=== PATIENT | female | born 1990 | race Caucasian/White ===

== ENCOUNTER 2019-01-22 19:15 | Inpatient (IN) | payer OTHER ==
[2019-01-22] MEDS ORDERED: Acetaminophen 500 MG TAB PO PRN (20:41)
[2019-01-22] MEDS ORDERED: Misoprostol 200 MCG TAB PR PRN (20:41)
[2019-01-22] MEDS ORDERED: Carboprost 250 MCG/ML AMP IM PRN (20:41)
[2019-01-22] MEDS ORDERED: Ondansetron PF 4 MG/2 ML Vial IVP PRN (20:41)
[2019-01-22] MEDS ORDERED: Butorphanol Tartrate 1 MG/ML VIAL SLOW IVP PRN (20:41)
[2019-01-22] MEDS ORDERED: hydrALAZINE 20 MG/ML VIAL SLOW IVP PRN (20:41)
[2019-01-22] MEDS ORDERED: Methylergonovine 0.2 MG/ML VIAL IM PRN (20:41)
[2019-01-22] MEDS ORDERED: HYDROcodone/Acetaminophen 5/325 mg Tablet PO PRN ×2 (20:41)
[2019-01-22] MEDS ORDERED: Ibuprofen 800 MG TAB PO PRN (20:41)
[2019-01-22] MEDS ORDERED: Zolpidem Tartrate 5 MG TAB PO PRN (20:41)
[2019-01-22] MEDS ORDERED: Diphenoxylate HCl/Atropine Tablet PO PRN ×2 (20:41)
[2019-01-22] MEDS ORDERED: Promethazine HCl 25 MG/ML VIAL IM PRN (20:41)
[2019-01-22] MEDS ORDERED: NS / Oxytocin 40 units/1000ml 1,000 ML IV PRN (20:41)
[2019-01-22] MEDS ORDERED: Docusate 100 MG CAP PO PRN (20:41)
[2019-01-22] MEDS ORDERED: Lidocaine 1% (PF) 30 ML VIAL SC PRN (20:41)
[2019-01-22] MEDS ORDERED: NS w/ Oxytocin 10 units 500 ML IV SCH ×2 (20:45)
--- NOTE | 2019-01-22 20:48 | PDOC.LDHP ---
Labor and Delivery H&P Chief complaint: scheduled induction HPI: 28 y/o at 39 and 1/7 weeks presents for term induction of labor. GBS positive. PCN protocol ordered. Current gestational age (weeks): 39 Due date: 01/28/19 Grav: 2 Para: 1 Current complications: none Abnormal US findings: No Current medications: pre-eveline vitamins Previous surgical history: none Social history: none - Physical Exam Vital signs reviewed and normal: yes General: NAD, resting Heart: RRR Lungs: CTAB Abdomen: gravid Extremeties: no edema FHT: category 1 - Assessment L&D Assessment: elective induction at term - Plan Plan: admit to L&D, cervical ripening
[2019-01-22] MEDS ORDERED: Misoprostol 100 MCG TAB VAG SCH (21:00)
[2019-01-22] MEDS ORDERED: Penicillin G Potassium 5 MILL.UNITS in Sodium Chloride 0.9% 100 ML IVPB SCH (21:30)
[2019-01-22 22:29] LABS: Hemoglobin 8.9 g/dL (12.0-16.0); Mean Corpuscular HGB CONC 35.4 g/dL (32.0-36.0); Mean Corpuscular Hemoglobin 29.1 pg (27.0-31.0); Mean Corpuscular Volume 82.1 fL (78.0-98.0); Platelet Count 165 thou/uL (130-400); RBC Distribution Width 12.3 % (11.5-14.5); Red Blood Cell (RBC) Count 3.06 mill/uL (4.20-5.40); White Blood Cell (WBC) Count 9.5 thou/uL (4.8-10.8)
[2019-01-22 23:02] VITALS: BMI 28.3
[2019-01-22 23:10] LABS: Syphilis Antibody Nonreactive (Nonreactive); Syphilis Antibody Index 0.06 S/CO (<1.00 Non-Reactive)
[2019-01-22 23:51] LABS: HBSAg Index 0.13 S/CO (0-0.99); Hep B Surf Ag Non-Reactive S/CO (NonReactive)
[2019-01-23] MEDS: Lactated Ringer's 1,000 ML IV SCH ×2 (00:19→15:29)
[2019-01-23] MEDS ORDERED: Fentanyl 4 mcg/Bup 0.1% Cadd 100 ML ONE (00:34)
[2019-01-23] MEDS ORDERED: Penicillin G 2.5 MILL.units 2.5 MILL.UNITS in Premix Bag 1 BAG IVPB SCH (01:00)
[2019-01-23] MEDS ORDERED: Naloxone HCl 0.4 mg/ml Vial IVP PRN ×2 (01:12)
[2019-01-23] MEDS ORDERED: Ondansetron PF 4 MG/2 ML Vial IVP PRN ×2 (01:12→06:37)
[2019-01-23] MEDS ORDERED: diphenhydrAMINE 50 MG/ML VIAL IVP PRN (01:12)
[2019-01-23] MEDS ORDERED: Lactated Ringer's 500 ML IV PRN (01:12)
[2019-01-23] MEDS ORDERED: ePHEDrine/0.9% NaCl/PF SYRINGE 50 mg/10 ml SLOW IVP PRN (01:12)
[2019-01-23] MEDS ORDERED: Acetaminophen 325 MG TAB PO PRN (01:12)
[2019-01-23] MEDS ORDERED: Promethazine HCl 25 MG/ML VIAL IM PRN ×2 (01:12→06:37)
[2019-01-23] MEDS ORDERED: Fentanyl 4 mcg/Bupivacaine 0.1% Cassette 100 ML EPIDURAL SCH (01:15)
[2019-01-23] MEDS ORDERED: Communication Order-Pharmacy FS SCH (01:15)
[2019-01-23] MEDS ORDERED: Varicella virus, LIVE 0.5 ML VIAL SC ONE (06:37)
[2019-01-23] MEDS ORDERED: Lanolin Ointment 7 GM TUBE TOP PRN (06:37)
[2019-01-23] MEDS ORDERED: Preparation H Ointment 28 GM TUBE PR PRN (06:37)
[2019-01-23] MEDS ORDERED: Benzocaine-Menthol 82.5 ML CAN TOP PRN (06:37)
[2019-01-23] MEDS ORDERED: Milk Of Magnesia 30 ML UDCUP PO PRN (06:37)
[2019-01-23] MEDS ORDERED: Methylergonovine 0.2 MG/ML VIAL IM PRN (06:37)
[2019-01-23] MEDS ORDERED: HYDROcodone/Acetaminophen 5/325 mg Tablet PO PRN ×2 (06:37)
[2019-01-23] MEDS ORDERED: Acetaminophen/Codeine 30-300mg Tablet PO PRN ×2 (06:37)
[2019-01-23] MEDS ORDERED: Zolpidem Tartrate 5 MG TAB PO PRN (06:37)
[2019-01-23] MEDS ORDERED: NS / Oxytocin 40 units/1000ml 1,000 ML IV SCH (06:37)
[2019-01-23] MEDS ORDERED: Bisacodyl 10 MG SUPP PR PRN (06:37)
[2019-01-23] MEDS ORDERED: Measles/Mumps/Rubella 10 MCG/0.5 ML VIAL SC ONE (06:37)
[2019-01-23] MEDS ORDERED: diphenhydrAMINE 25 MG CAP PO PRN (06:37)
[2019-01-23] MEDS ORDERED: Adacel (T-DAP) 0.5 ML SYRINGE IM ONE (06:37)
[2019-01-23] MEDS ORDERED: hydrALAZINE 20 MG/ML VIAL SLOW IVP PRN (06:37)
[2019-01-23] MEDS: Ibuprofen 800 MG TAB PO SCH ×2 (06:59→15:07)
[2019-01-23] MEDS: Ferrous Sulfate 325 MG TAB PO SCH ×2 (08:23→17:24)
[2019-01-23] MEDS: Prenatal Vitamin 1 TAB PO SCH (08:23)
[2019-01-23] MEDS: Docusate Calcium (SURFAK) 240 MG CAP PO SCH ×2 (08:23→20:47)
[2019-01-24 04:39] LABS: Hemoglobin 8.8 g/dL (12.0-16.0); Mean Corpuscular HGB CONC 34.4 g/dL (32.0-36.0); Mean Corpuscular Volume 84.3 fL (78.0-98.0); Platelet Count 147 thou/uL (130-400); RBC Distribution Width 12.3 % (11.5-14.5); Red Blood Cell (RBC) Count 3.05 mill/uL (4.20-5.40); White Blood Cell (WBC) Count 9.9 thou/uL (4.8-10.8)
[2019-01-24] MEDS: Ibuprofen 800 MG TAB PO SCH ×2 (04:47→06:00)
[2019-01-24 08:28] VITALS: BP 131/81; TEMP 98
[2019-01-24] MEDS ORDERED: Mag-Al 1200 mg/1200 mg/30 ML UDCUP PO PRN (08:35)
[2019-01-24] MEDS: Docusate Calcium (SURFAK) 240 MG CAP PO SCH (08:52)
[2019-01-24] MEDS: Ferrous Sulfate 325 MG TAB PO SCH (08:52)
[2019-01-24] MEDS: Prenatal Vitamin 1 TAB PO SCH (08:52)
--- NOTE | 2019-01-24 13:13 | PDOC.PP ---
Post Progress Note Post Day #: 1 PO intake tolerated: yes Flatus: yes Ambulation: yes Vital Signs (12 hours) Temp Pulse Resp BP Pulse Ox 01/24/19 08:27 98.0 F 91 20 131/81 97 01/24/19 04:35 98.2 F 73 20 136/80 97 Weight Weight 155 lb - Physical Examination General: NAD Cardiovascular: no m/r/g, RRR Respiratory: clear to auscultation bilaterally Abdominal: + bowel sounds, lochia, no distention Extremities: negative homans (B) Neurological: no gross focal deficits Psychiatric: A&Ox3, normal affect (DC to home) Result Diagrams: 01/24/19 04:21 Additional Labs: Post Labs Blood Type A POSITIVE 01/22/19 22:23 Hep Bs Antigen Non-Reactive S/CO (NonReactive) 01/22/19 22:23
--- NOTE | 2019-01-25 00:27 | DN ---
DATE OF PROCEDURE: 01/23/2019 TIME OF SERVICE: 0257 hours, Central Standard Time. PREOPERATIVE DIAGNOSIS: Intrauterine at 39 weeks and 2 days with a term induction of labor. POSTOPERATIVE DIAGNOSIS: Intrauterine at 39 weeks and 2 days with a term induction of labor. PROCEDURE PERFORMED: Spontaneous vaginal delivery over a first-degree laceration of the perineum. FINDINGS: Viable male weighing 2630 g or 5 pounds 13 ounces. Apgars 8 and 9. One tight nuchal cord was noted at the time of delivery. QUANTITATIVE BLOOD LOSS: 70 mL. COMPLICATIONS: None. PROCEDURE IN DETAIL: The patient presented to [facility] where she was admitted to the labor and delivery service. The patient underwent a normal and uneventful labor with normal cervical dilatation until she was found to be completely dilated. She was then allowed to push and was able to bring the baby down and delivered the baby in a vertex presentation without difficulties. Once the head delivered in occiput anterior position, the shoulders followed spontaneously along with the rest of the baby's body. Once out the baby's mouth and nose were bulb suctioned. The cord was clamped and cut and baby was handed to waiting attendants. Cord blood was collected. Gentle fundal massage was performed and the placenta delivered intact without problems. Hemostasis was assured. Quantitative blood loss was calculated. Inspection of the cervix, vaginal vault, and perineum did not reveal any lacerations needing suturing. Once again, hemostasis was within normal limits and the patient was allowed to recover in the labor and delivery room. Baby went to nursery. Job ID: [id number]
--- NOTE | 2019-01-25 23:00 | PQF ---
Cathleen Doyle DAVID MD [id number] CLINICAL DOCUMENTATION CLARIFICATION FORM: POST DISCHARGE Addendum to original discharge summary date: ____ Late entry note date: __ DATE: 01/25/19 ATTN: Galileo Poon Please exercise your independent, professional judgment in responding to the clarification form. Clinical indicators are provided on the bottom of this form for your review Please check appropriate box(s): [ ] Acute blood loss anemia [ ] Post-op anemia related to acute blood loss [ ] Chronic Anemia: [ ] Blood loss [ ] Hemolytic [ ] Simple [ ] Due to Vitamin B12 Deficiency [ ] Other [ ] Anemia of Chronic Disease (please specify) [ ] Other diagnosis [ ] Unable to determine In addition, please specify: Present on Admission (POA): [ ] Yes [ ] No [ ] Unable to determine For continuity of documentation, please document condition throughout progress notes and discharge summary. Thank You. CLINICAL INDICATORS - SIGNS / SYMPTOMS / LABS Laboratory Hematology 01/22 Hgb 8.9, Hct 25.1 Laboratory 01/24 Hematology Hgb 8.8, Hct 25.7 Delivery note p1 01/23 Quantitative blood loss 70ml RISK FACTORS Delivery note p1 01/23 Intrauterine 39 weeks Delivery note 01/23 TREATMENTS: MAY 15 Ferrous Sulfate 325mg if hemoglobin <10gm Blood Chemistry monitoring (This form is maintained as a part of the permanent medical record) 2014 [employer]. All Rights Reserved [email or web address] [not provided] [email or web address]
== END 2019-01-24 14:30 | disposition home or self-care (01) | DRG 807 ==
LOC: L&D 20:32 → 3SW 01-23 06:09
PROVIDERS: ADMIT Obstetrics & Gynecology; ATTEND Obstetrics & Gynecology
PROC: 10E0XZZ Delivery of Products of Conception, External Approach (ICD-10-PCS; principal; 2019-01-23)
PROC: 3E0P7VZ Introduction of Hormone into Female Reproductive, Via Natural or Artificial Opening (ICD-10-PCS; 2019-01-23)
DX: O99.824 Streptococcus B carrier state complicating childbirth (principal); Z37.0 Single live birth; Z3A.39 39 weeks gestation of pregnancy; O69.1XX0 Labor and delivery complicated by cord around neck, with compression, not applicable or unspecified
CPT/HCPCS: 36415; 51702; 85027; 86780; 86850; 86900; 86901; 87340; J0360; J2405; J2540; J3490

== ENCOUNTER 2020-01-17 09:27 | Outpatient (CLI) | payer OTHER ==
[2020-01-17 23:00] LABS: SARS-CoV-2 MS2 Positive; SARS-CoV-2 N Gene Negative; SARS-CoV-2 S Gene Negative; SARS-CoV-2 by NAA Not Detected (NotDetected); SARS-CoV-2 orf1ab Negative
== END 2020-01-17 09:28 | disposition home or self-care (01) ==
LOC: LABBT 09:27
PROVIDERS: ATTEND Obstetrics & Gynecology
DX: Z01.812 Encounter for preprocedural laboratory examination (principal); Z20.828 Contact with and (suspected) exposure to other viral communicable diseases
CPT/HCPCS: 87635; U0003

== ENCOUNTER 2020-01-20 08:26 | Day surgery (SDC) | payer OTHER ==
[2020-01-20 08:59] VITALS: BMI 25.9
[2020-01-20] MEDS ORDERED: Acetaminophen 500 MG TAB PO SCH (10:00)
[2020-01-20] MEDS ORDERED: Iron Sucrose Complex 500 MG in Sodium Chloride 0.9% 250 ML 250 ML IVPB SCH (10:00)
[2020-01-20] MEDS ORDERED: FLU VACC QS2020-21(6MOS UP)/PF 60 MCG/0.5 ML SYRINGE IM ONE (12:00)
== END 2020-01-20 15:30 | disposition home health service (06) ==
LOC: L&D/OP 08:26
PROVIDERS: ATTEND Obstetrics & Gynecology
DX: O99.019 Anemia complicating pregnancy, unspecified trimester (principal); D64.9 Anemia, unspecified; Z3A.00 Weeks of gestation of pregnancy not specified; Z79.899 Other long term (current) drug therapy
CPT/HCPCS: 96365; 96366; 99282; J1756; J7050

== ENCOUNTER 2020-02-22 10:59 | Outpatient (CLI) | payer OTHER ==
[2020-02-22 21:42] LABS: SARS-CoV-2 MS2 Positive; SARS-CoV-2 N Gene Negative; SARS-CoV-2 S Gene Negative; SARS-CoV-2 by NAA Not Detected (NotDetected); SARS-CoV-2 orf1ab Negative
== END 2020-02-22 11:00 | disposition home or self-care (01) ==
LOC: LABBT 10:59
PROVIDERS: ATTEND Obstetrics & Gynecology
DX: Z01.812 Encounter for preprocedural laboratory examination (principal); Z20.828 Contact with and (suspected) exposure to other viral communicable diseases
CPT/HCPCS: 87635; U0003

== ENCOUNTER 2020-02-26 06:00 | Inpatient (IN) | payer OTHER ==
[~2020-02-26 06:00] MED LIST: Acetaminophen 500 MG TAB PO PRN; Butorphanol Tartrate 1 MG/ML VIAL SLOW IVP PRN; Carboprost 250 MCG/ML AMP IM PRN; Diphenoxylate HCl/Atropine Tablet PO PRN; HYDROcodone/Acetaminophen 5/325 mg Tablet PO PRN; Ibuprofen 800 MG TAB PO PRN; Lidocaine 1% (PF) 30 ML VIAL SC PRN; Methylergonovine 0.2 MG/ML VIAL IM PRN; Misoprostol 200 MCG TAB PR PRN; NS / Oxytocin 40 units/1000ml 1,000 ML IV PRN; Ondansetron PF 4 MG/2 ML Vial IVP PRN; Penicillin G Potassium 5 MILL.UNITS in Sodium Chloride 0.9% 100 ML IVPB SCH; Promethazine HCl 25 MG/ML VIAL IM PRN; hydrALAZINE 20 MG/ML VIAL SLOW IVP PRN
[2020-02-26] MEDS: Lactated Ringer's 1,000 ML IV SCH ×3 (08:15→23:27)
[2020-02-26 08:19] LABS: Hemoglobin 9.6 g/dL (12.0-16.0); Mean Corpuscular Hemoglobin 26.4 pg (27.0-31.0); Mean Corpuscular Volume 82.5 fL (78.0-98.0); Mean Platelet Volume 10.1 fL (7.4-10.4); Platelet Count 148 thou/uL (130-400); Red Blood Cell (RBC) Count 3.63 mill/uL (4.20-5.40); White Blood Cell (WBC) Count 8.6 thou/uL (4.8-10.8)
[2020-02-26 08:28] VITALS: BMI 26.9
[2020-02-26] MEDS ORDERED: FLU VACC QS2020-21(6MOS UP)/PF 60 MCG/0.5 ML SYRINGE IM ONE (08:45)
[2020-02-26 08:55] LABS: Syphilis Antibody Nonreactive (Nonreactive); Syphilis Antibody Index 0.04 S/CO (<1.00 Non-Reactive)
[2020-02-26] MEDS: Misoprostol 100 MCG TAB VAG SCH ×2 (08:55→23:27)
[2020-02-26 08:56] LABS: HBSAg Index 0.19 S/CO (0-0.99); Hep B Surf Ag Non-Reactive S/CO (NonReactive)
[2020-02-26] MEDS ORDERED: Penicillin G 2.5 MILL.units 50 ML ONE ×2 (13:25→17:32)
[2020-02-26] MEDS: Penicillin G 2.5 MILL.units 2.5 MILL.UNITS in Premix Bag 1 BAG IVPB SCH ×3 (13:30→23:28)
[2020-02-26] MEDS ORDERED: Fentanyl 4 mcg/Bup 0.1% Cadd 100 ML EPIDURAL SCH (14:00)
[2020-02-26] MEDS ORDERED: Lactated Ringer's 500 ML IV PRN (14:32)
[2020-02-26] MEDS ORDERED: Ondansetron PF 4 MG/2 ML Vial IVP PRN ×2 (14:32→22:02)
[2020-02-26] MEDS ORDERED: Acetaminophen 325 MG TAB PO PRN (14:32)
[2020-02-26] MEDS ORDERED: diphenhydrAMINE 50 MG/ML VIAL IVP PRN (14:32)
[2020-02-26] MEDS ORDERED: Naloxone HCl 0.4 mg/ml Vial IVP PRN ×2 (14:32)
[2020-02-26] MEDS ORDERED: ePHEDrine 50 MG/ML VIAL SLOW IVP PRN (14:32)
[2020-02-26] MEDS ORDERED: Promethazine HCl 25 MG/ML VIAL IM PRN ×2 (14:32→22:02)
[2020-02-26] MEDS ORDERED: Communication Order-Pharmacy FS SCH (14:45)
[2020-02-26] MEDS ORDERED: Fentanyl 4 mcg/Bupivacaine 0.1% Cassette 100 ML EPIDURAL SCH (14:45)
[2020-02-26] MEDS ORDERED: Bupivacaine HCl 0.25%/Epi 0.0005/PF 10 ML VIAL FS ONE (14:48)
[2020-02-26] MEDS ORDERED: Sodium Chloride 0.9% (PF) 10 ML VIAL ONE (14:48)
[2020-02-26] MEDS ORDERED: NS w/ Oxytocin 30 units 500 ML ONE ×2 (17:23→20:12)
--- NOTE | 2020-02-26 18:45 | PDOC.EVN ---
Event Note - Event Note Event Note: Asked to AROM by Dr. Poon. SVE /0 vtx. AROM clear. FHTs stable, no decels seen. Ucs q 2 mins, pit at 2 mu/min. Dr. Poon notified.
[2020-02-26] MEDS ORDERED: Lidocaine 1% MPF 2 ML VIAL ONE (20:12)
[2020-02-26] MEDS ORDERED: Lidocaine 1% (PF) 30 ML VIAL ONE (20:14)
[2020-02-26] MEDS ORDERED: NS w/ Oxytocin 30 units 500 ML IV PRN (20:30)
--- NOTE | 2020-02-26 20:53 | PDOC.LDHP ---
Labor and Delivery H&P Chief complaint: scheduled induction HPI: 29 y/o at 39 and 1/7 wks for term elective induction of labor. Current gestational age (weeks): 39 Grav: 3 Para: 2 Current complications: other (Anemia) Abnormal US findings: No Current medications: pre- vitamins Allergies/Adverse Reactions: Allergies Allergy/AdvReac Type Severity Reaction Status Date / Time No Known Allergies Allergy Verified 01/20/20 09:03 Social history: none - Physical Exam Vital signs reviewed and normal: yes General: NAD, resting Heart: RRR Lungs: CTAB Abdomen: gravid FHT: category 1 - Assessment L&D Assessment: elective induction at term - Plan Plan: admit to L&D, cervical ripening
[2020-02-26] MEDS ORDERED: Benzocaine-Menthol 82.5 ML CAN TOP PRN (22:02)
[2020-02-26] MEDS ORDERED: Milk Of Magnesia 30 ML UDCUP PO PRN (22:02)
[2020-02-26] MEDS ORDERED: Bisacodyl 10 MG SUPP PR PRN (22:02)
[2020-02-26] MEDS ORDERED: HYDROcodone/Acetaminophen 5/325 mg Tablet PO PRN (22:02)
[2020-02-26] MEDS ORDERED: Zolpidem Tartrate 5 MG TAB PO PRN (22:02)
[2020-02-26] MEDS ORDERED: NS w/ Oxytocin 30 units 500 ML IV SCH (22:02)
[2020-02-26] MEDS ORDERED: diphenhydrAMINE 25 MG CAP PO PRN (22:02)
[2020-02-26] MEDS ORDERED: Methylergonovine 0.2 MG/ML VIAL IM PRN (22:02)
[2020-02-26] MEDS ORDERED: Misoprostol 200 MCG TAB VAG PRN (22:02)
[2020-02-26] MEDS ORDERED: Lanolin Ointment 7 GM TUBE TOP PRN (22:02)
[2020-02-26] MEDS ORDERED: Preparation H Ointment 28 GM TUBE PR PRN (22:02)
[2020-02-26] MEDS ORDERED: hydrALAZINE 20 MG/ML VIAL SLOW IVP PRN (22:02)
[2020-02-26] MEDS ORDERED: Docusate Calcium (SURFAK) 240 MG CAP PO SCH (22:15)
[2020-02-26] MEDS ORDERED: Ibuprofen 800 MG TAB PO SCH (22:30)
[2020-02-26] MEDS: Ibuprofen 800 MG TAB PO SCH (22:38)
[2020-02-27] MEDS: Ibuprofen 800 MG TAB PO SCH ×3 (05:02→20:43)
[2020-02-27 06:39] LABS: Hemoglobin 9.8 g/dL (12.0-16.0); Mean Corpuscular Hemoglobin 28.2 pg (27.0-31.0); Mean Corpuscular Volume 82.8 fL (78.0-98.0); Mean Platelet Volume 10.3 fL (7.4-10.4); Platelet Count 132 thou/uL (130-400); RBC Distribution Width 18.1 % (11.5-14.5); Red Blood Cell (RBC) Count 3.49 mill/uL (4.20-5.40); White Blood Cell (WBC) Count 9.7 thou/uL (4.8-10.8)
[2020-02-27] MEDS ORDERED: Adacel (T-DAP) 0.5 ML SYRINGE IM ONE (09:00)
[2020-02-27] MEDS ORDERED: Measles/Mumps/Rubella 10 MCG/0.5 ML VIAL SC ONE (09:00)
[2020-02-27] MEDS ORDERED: Varicella virus, LIVE 0.5 ML VIAL SC ONE (09:00)
[2020-02-27] MEDS ORDERED: Prenatal Vitamin 1 TAB PO SCH (09:00)
[2020-02-27] MEDS: Ferrous Sulfate 325 MG TAB PO SCH ×2 (10:13→17:21)
[2020-02-27] MEDS: Docusate Calcium (SURFAK) 240 MG CAP PO SCH ×2 (10:13→20:43)
[2020-02-27] MEDS: HYDROcodone/Acetaminophen 5/325 mg Tablet PO PRN ×2 (12:38→17:19)
--- NOTE | 2020-02-27 15:15 | PDOC.PP ---
Post Progress Note Post Day #: 1 PO intake tolerated: yes Flatus: yes Ambulation: yes Vital Signs (12 hours) Temp Pulse Resp BP Pulse Ox 02/27/20 11:45 97.5 F L 69 20 103/65 02/27/20 08:25 99 02/27/20 08:10 98.1 F 58 L 20 101/62 99 02/27/20 05:29 98.6 F 63 16 91/60 99 Weight Weight 147 lb - Physical Examination General: NAD Cardiovascular: no m/r/g, RRR Respiratory: clear to auscultation bilaterally Abdominal: + bowel sounds, lochia Extremities: negative homans (B) Neurological: no gross focal deficits Psychiatric: A&Ox3, normal affect Result Diagrams: 02/27/20 06:22 Additional Labs: Post Labs Hep Bs Antigen Non-Reactive S/CO (NonReactive) 02/26/20 08:06 Blood Type A POSITIVE 02/26/20 08:06
--- NOTE | 2020-02-27 20:08 | DN ---
DATE OF PROCEDURE: 02/26/2020 TIME OF SERVICE: At 2025 hours central with a term induction of labor. POSTOPERATIVE DIAGNOSIS: . PROCEDURE PERFORMED: Spontaneous vaginal delivery over a first-degree laceration in the perineum. FINDINGS: Viable female infant, weighing 3443 g or 7 pounds 9 ounces, Apgars of 7 and 9. QUANTITATIVE BLOOD LOSS: 25. COMPLICATIONS: None. PROCEDURE IN DETAIL: The patient presented to [facility] where she was admitted to the labor and delivery service. The patient underwent a normal and uneventful labor with normal cervical dilatation until she was found to be completely dilated. She was then allowed to push and was able to bring the baby down and delivered the baby in a vertex presentation without difficulties. Once the head delivered in occiput anterior position, the shoulders followed spontaneously along with the rest of the baby's body. Once out the baby's mouth and nose were bulb suctioned. The cord was clamped and cut and baby was handed to waiting attendants. Cord blood was collected. Gentle fundal massage was performed and the placenta delivered intact without problems. Hemostasis was assured. Quantitative blood loss was calculated. Inspection of the cervix, vaginal vault, and perineum did not reveal any lacerations needing suturing. Once again, hemostasis was within normal limits and the patient was allowed to recover in the labor and delivery room. Baby went to nursery. Job ID: [id number]
[2020-02-27 20:23] VITALS: BP 106/64; TEMP 98
== END 2020-02-27 23:00 | disposition home or self-care (01) | DRG 807 ==
LOC: L&D 06:17 → 3SW 02-27 00:48
PROVIDERS: ADMIT Obstetrics & Gynecology; ATTEND Obstetrics & Gynecology
PROC: 10E0XZZ Delivery of Products of Conception, External Approach (ICD-10-PCS; principal; 2020-02-26)
PROC: 10907ZC Drainage of Amniotic Fluid, Therapeutic from Products of Conception, Via Natural or Artificial Opening (ICD-10-PCS; 2020-02-26)
DX: O99.02 Anemia complicating childbirth (principal); Z37.0 Single live birth; D64.9 Anemia, unspecified; Z3A.39 39 weeks gestation of pregnancy; O70.0 First degree perineal laceration during delivery
CPT/HCPCS: 36415; 51702; 85027; 86780; 86850; 86900; 86901; 87340; J2405; J2540; J2590; J3490